=== PATIENT | female | born 1955 | race Caucasian/White ===

== ENCOUNTER 2025-06-07 15:48 | Outpatient (CLI) | payer MEDICARE, MEDICAID ==
[~2025-06-07] VITALS: Ht 151.1 cm; Wt 42.2 kg
[~2025-06-07 15:48] MED LIST: AZIT-164 PO; BENZ200C53 PO; BUPR150T8 PO; CALC668T PO; CARV-50 PO; CETI10TA14 PO; CHOL100046 PO; DILT240C90 PO; DOCU100C38 PO; EST1T PO; FOLI400T4 PO; HYDR-3965 PO; IPRA3AMP31 IH; LEVO112T52 PO; LIOT5TAB10 PO; LOSA-415 PO; MELA1TAB52 PO; METO50TA7 PO; METO5TAB85 PO; OLAN5TAB29 PO; OXCA300T16 PO
[2025-06-07] MEDS: albuterol 2.5 MG/3 ML nebule NEB ONE (16:35)
[2025-06-07 16:37] VITALS: PULSE 69; RESP 16; O2SAT 97
[2025-06-07 16:49] VITALS: PULSE 63; RESP 16
--- NOTE | 2025-06-08 14:19 | PROCEDURE NOTE - Respiratory ---
Procedure Note-Respiratory Providers to Copies To 1: MISHEL CANO DO Procedure Name: This is a spirometry study dated June 07, 2025. The spirometry study was performed both before and after inhaled bronchodilator. Spirometry measurements: Both the forced vital capacity and the FEV1 measurements are at the lower limit of normal. The FEV1 ratio is borderline reduced. Some of the flow rates are clearly reduced. After inhaled bronchodilator was administered, there is some improvement in the forced vital capacity and some of the flow rate measurements. Conclusion: This study is abnormal. There is evidence for obstructive ventilatory defect in the [id number] category. The patient shows some reversibility with inhaled bronchodilator. These findings confirm the diagnosis of [id number] asthma. This patient should continue the regular daily use of bronchodilator medications. We have no previous studies for comparison. BETO FLAHERTY MD Jun 08, 2025 14:19
== END 2025-06-07 23:59 | disposition home or self-care (01) ==
LOC: RT 15:48
PROVIDERS: ATTEND Student in an Organized Health Care Education/Training Program
DX: J45.909 Unspecified asthma, uncomplicated (principal)
CPT/HCPCS: 94060; 94760

== ENCOUNTER → 2025-06-19 | Day surgery (SDC) | payer MEDICARE, MEDICAID ==
[~2025-06-19] MED LIST changes: +LIDOcaine 1%/PF 5ML 10 MG/ML VIAL ONE
--- NOTE | 2025-06-19 10:10 | AUTHORIZATION AND CONSENTS ---
Informed Consent Providers to CC CC: CHRIS EDGAR MD ~ Informed Consent Patient seen and evaluated. Mallapati 2, ASA 2. TDC has been in place since June 2024. Risks, benefits, and alternatives discussed with the patient and/or authorized decision maker. Discussed risk of bleeding, infection, damage to vessel or foreign body removal if catheter is not removed intact, patient verbalized understanding. Informed consent obtained. Patient consents to proceed. Moderate Sedation Moderate Sedation : Date of Procedure: Jun 19, 2025 BESSY TAPIA EXPORT SALES ASSISTANT Jun 19, 2025 10:10
[2025-06-19 10:14] VITALS: BP 158/93; PULSE 79; RESP 16; O2SAT 96
--- NOTE | 2025-06-19 14:37 | PROCEDURE NOTE CC ---
Procedure Note Providers to CC CC: CHRIS EDGAR MD ~ Planned Procedure Right IJ tunneled dialysis catheter removal Indications No longer needed, fistula working properly for HD. X Ray Technician Francisco Javier Tapia UNDERWATER PHOTOGRAPHER Type of Anesthesia Local Informed Consent Informed consent obtained, discussed risks, benefits and possible complications. Patient wishes to proceed. Description Time out performed. RIJ TDC removed with blunt and sharp dissection. 8cc lidocaine infiltrated. Catheter inspected after removal without fracture or clot burden. Pressure applied to site for approximately 5 minutes. Skin closed with steri-strips, no bleeding present. Medipore dressing applied. Estimated Blood Loss 2cc Complication None BESSY TAPIA UNDERWATER PHOTOGRAPHER Jun 19, 2025 14:37
== END | disposition home or self-care (01) ==
LOC: ANGIO 09:01
PROVIDERS: ATTEND Radiology Diagnostic Radiology
DX: Z45.2 Encounter for adjustment and management of vascular access device (principal); I12.9 Hypertensive chronic kidney disease with stage 1 through stage 4 chronic kidney disease, or unspecified chronic kidney disease; N18.9 Chronic kidney disease, unspecified; J45.909 Unspecified asthma, uncomplicated; Z90.710 Acquired absence of both cervix and uterus
CPT/HCPCS: 36589; J3490